=== PATIENT | male | born 1975 | race African-American/Black ===

== ENCOUNTER 2019-03-20 16:39 | Emergency (ER) | payer MEDICAID ==
[~2019-03-20] VITALS: Ht 162.6 cm; Wt 73.0 kg
[2019-03-20] MEDS ORDERED: DIAZEPAM 5 MG TABLET PO ONE (21:00)
[2019-03-20] MEDS ORDERED: KETOROLAC 60MG/2ML VIAL IM ONE (21:00)
[2019-03-20 21:50] VITALS: BP 129/80
== END 2019-03-20 21:51 | disposition home or self-care (01) ==
LOC: ER 16:39
DX: M62.838 Other muscle spasm (principal); S93.491A Sprain of other ligament of right ankle, initial encounter; V49.49XA Driver injured in collision with other motor vehicles in traffic accident, initial encounter; Y93.89 Activity, other specified; Y92.410 Unspecified street and highway as the place of occurrence of the external cause
CPT/HCPCS: 73030; 73610; 96372; 99283; J1885; Z7610